=== PATIENT | female | born 2000 | race Caucasian/White ===

== ENCOUNTER 2020-11-25 22:18 | Emergency (ER) | payer OTHER, SELFPAY ==
[2020-11-25 22:19] VITALS: BP 148/91; PULSE 109; RESP 20; TEMP 36.6; O2SAT 100; BMI 30.4
--- NOTE | 2020-11-25 22:45 | ED.VIS.UPPEX ---
History of Present Illness Chief Complaint: Upper Extremity Injury Narrative: Patient presenting for evaluation secondary to a left elbow injury. Patient reports that she suffered a fall on the ice today. She struck her left elbow on the ground. Pain is moderate worse with movement. She denies hitting her head or loss of consciousness. No numbness or weakness. No bleeding dyscrasias, she is not on any sort of anticoagulants. Past Medical History - Allergies and Home Meds Allergies/Adverse Reactions: Allergies No Known Allergies Allergy (Verified 11/25/20 22:36) Primary Care Physician: Kevin Casillas,Out of [NON-STAFF] - Prior records reviewed: Yes Past Medical History: None Lives: Spouse/ Significant Other Smoking Status: Never smoker Alcohol: None Drugs: None Review of Systems All systems negative except as indicated General: Denies: Chills, Fever, Sweats Eyes: Denies: Visual changes - bilaterally, Diplopia ENT: Denies: Rhinorrhea, Sore throat Cardiovascular: Denies: Chest pain, Palpitations Respiratory: Denies: Dyspnea, Cough, Dyspnea on exertion Gastrointestinal: Denies: Abdominal pain, Nausea, Vomiting, Diarrhea, Melena, Hematochezia Genitourinary: Denies: Dysuria, Hematuria, Frequency Musculoskeletal: Reports: Extremity Pain Skin: Denies: Rash, Wounds Neurological: Denies: Headache, Weakness, Numbness Physical Exam Vital Signs/Narrative: Vital Signs Temp Pulse Resp BP Pulse Ox 11/25/20 22:19 97.8 F 109 H 20 H 148/91 H 100 Inital Vital Signs reviewed: Yes Left Humerus: - - No injuries or pain noted of the left shoulder, upper arm, forearm, wrist or hand. Normal distal pulses and sensation. Left Elbow: - - Joint effusion is noted of the left elbow. Limited range of motion with both pronation supination flexion and extension. Some focal tenderness over the olecranon. General: Well nourished, Well developed Head: Normocephalic, Atraumatic Eyes: Perrl, EOMI ENT: No Trauma, Moist Mucous Membranes Neck: Nontender, Full ROM Cardiovascular: Regular rate, Regular rhythm, No murmurs Respiratory: No distress, CTA bilaterally, Chest nontender Abdomen: Soft, Nontender, Nondistended, Normal bowel sounds Back: Nontender Skin: Normal color, No rash Neurological: Alert, Oriented x3, Cranial nerves II-XII grossly intact, Normal Strength, Normal Sensation Psychological: Normal affect Diagnostic/Tx/Re-eval - Medical Decision Making Patient presented secondary to a fall on the ice. 3 view of the left elbow was obtained by my personal review shows evidence of joint effusion likely indicative of an occult radial head fracture. I did not see any obvious fracture lines on my review, radiology did not review this at the time of the patient's disposition. Patient will be placed in a sling for immobilization. I did not find any other traumatic injuries on the patient, no indications for further imaging. I offered prescription analgesics, the patient did decline. Patient will use ice and ibuprofen. She will follow-up with orthopedics. Patient was discharged in stable condition. ED Disposition - Plan for ED Patient: Disposition: Home or Assisted Living Diagnosis: Fracture of radial head, left, closed Instructions: ED Radial Head Fracture Referrals: Adrian Champion DO [STAFF PHYSICIAN] - 3-5 Days
--- NOTE | 2020-11-25 22:55 | RAD_ITS ---
HISTORY: Fell on ice, left elbow pain. ADDITIONAL HISTORY: None provided. EXAMINATION/TECHNIQUE: XR Elbow Min 3 Views Left Number of images including paperwork: 3 COMPARISON: None FINDINGS: BONES: No acute fracture. JOINTS: No subluxation. Left elbow joint effusion. SOFT TISSUES: No distinct foreign body. RAD/Elbow min 3 Views IMPRESSION: No acute fracture detected. Elbow joint effusion could indicate the presence of occult fracture. at 0005 Reported and signed by: Anne Leonardo MD Electronically Signed: Anne Leonardo MD at 0:05 EST Tel , Service support ,
[2020-11-26 00:28] VITALS: RESP 12
== END 2020-11-26 00:29 | disposition home or self-care (01) ==
PROVIDERS: Emergency Provider Emergency Medicine
DX: S52.122A Displaced fracture of head of left radius, initial encounter for closed fracture (principal); W00.0XXA Fall on same level due to ice and snow, initial encounter; Y93.9 Activity, unspecified; Y92.9 Unspecified place or not applicable; Y99.9 Unspecified external cause status
CPT/HCPCS: 73080; 99283